=== PATIENT | male | born 1990 | race Caucasian/White ===

== ENCOUNTER 2019-04-10 14:33 | Outpatient (CLI) | payer MEDICAID ==
[2019-04-10 17:06] LABS: BASOPHILS % (AUTO) 0.4 %; EOSINOPHILS # (AUTO) 0.2 10^3/uL (0.0-0.7); EOSINOPHILS % (AUTO) 2.8 %; HGB - HEMOGLOBIN 13.9 g/dL (14.0-18.0); LYMPHOCYTES # (AUTO) 1.8 10^3/uL (1.5-3.5); LYMPHOCYTES % (AUTO) 31.8 %; MEAN CORPUSCULAR HEMOGLOBIN 31.6 pg (27.0-31.0); MEAN CORPUSCULAR HGB CONC 33.4 g/dL (32.0-36.0); MEAN CORPUSCULAR VOLUME 94.5 fL (80.0-94.0); MEAN PLATELET VOLUME 10.6 fL (7.4-11.4); MONOCYTES # (AUTO) 0.8 10^3/uL (0.0-1.0); MONOCYTES % (AUTO) 14.6 %; NEUTROPHILS # (AUTO) 2.9 10^3/uL (1.5-6.6); NEUTROPHILS % (AUTO) 50.2 %; PLT - PLATELET COUNT 285 10^3/uL (130-450); RED CELL DISTRIBUTION WIDTH 13.2 % (12.0-15.0); WHITE BLOOD COUNT 5.7 x10^3/uL (4.8-10.8)
== END 2019-04-10 14:34 | disposition home or self-care (01) ==
LOC: LAB.F 14:33
PROVIDERS: ATTEND Registered Nurse
DX: F41.8 Other specified anxiety disorders (principal); J30.9 Allergic rhinitis, unspecified
CPT/HCPCS: 36415; 84443; 85025

== ENCOUNTER 2020-08-18 13:24 | Outpatient (CLI) | payer MEDICAID ==
--- NOTE | 2020-08-18 13:46 | XRAY Report ---
PROCEDURE: Shoulder 2 View LT INDICATIONS: Left shoulder pain TECHNIQUE: 2 views of the shoulder were acquired. COMPARISON: None. FINDINGS: Bones: No fractures or dislocations. No suspicious bony lesions. Visualized ribs appear intact. Soft tissues: No suspicious soft tissue calcifications. IMPRESSION: Normal left shoulder radiographs. Reviewed by: Jens Ramirez MD on 08/18/2020 1:45 PM RUST Approved by: Jens Ramirez MD on 08/18/2020 1:45 PM RUST Station ID: [id number]
== END 2020-08-18 23:59 | disposition home or self-care (01) ==
LOC: DI.WCP 13:24
PROVIDERS: ATTEND Orthopaedic Surgery
DX: M25.512 Pain in left shoulder (principal)

== ENCOUNTER 2023-01-26 00:53 | Emergency (ER) | payer MEDICAID ==
[2023-01-26] MEDS ORDERED: ONDANSETRON 4 MG/2 ML VIAL IVP STA (00:56)
[2023-01-26] MEDS ORDERED: SODIUM CHLORIDE 0.9% 1,000 ML IV STA (00:56)
[2023-01-26] MEDS ORDERED: KETOROLAC 30 MG/ML VIAL IVP STA (00:57)
[2023-01-26] MEDS ORDERED: MORPHINE 2 MG/ML CARPUJECT IVP STA (01:03)
--- NOTE | 2023-01-26 01:05 | ED Physician Documentation ---
PD HPI ABD PAIN - Stated complaint Stated Complaint: ABD PAIN, VOMITING - Chief complaint Chief Complaint: Abd Pain - History obtained from History obtained from: Patient - Additional information Additional information: Patient is a 32-year-old presenting for evaluation of right-sided abdominal pain that started suddenly at 11 PM with associated nausea and vomiting. Patient states that the pain comes in waves. He has not had no prior episodes similar to this but did have a little bit of pain yesterday in the back. He denies hematuria, fevers, dysuria.He denies prior abdominal surgeries. Denies diarrhea. Review of Systems Constitutional: denies: Fever Cardiac: denies: Chest pain / pressure Respiratory: denies: Dyspnea GI: reports: Abdominal Pain, Nausea, Vomiting : denies: Dysuria PD PAST MEDICAL HISTORY - Present Medications Home Medications: Ambulatory Orders Medication Instructions Recorded Confirmed Ondansetron Odt [Zofran] 4 mg TL Q6H PRN #10 tablet 01/26/23 Oxycodone HCl/Acetaminophen 1 each PO Q6H PRN #14 tablet 01/26/23 [Percocet 5-325 mg Tablet] Tamsulosin [Flomax] 0.4 mg PO DAILY #14 cap 01/26/23 - Allergies Allergies/Adverse Reactions: Allergies Allergy/AdvReac Type Severity Reaction Status Date / Time No Known Drug Allergies Allergy Verified 01/26/23 00:57 PD ED PE NORMAL - General General: Alert and oriented X 3, No acute distress, Well developed/nourished - HEENT HEENT: Atraumatic - Neck Neck: Supple, no meningeal sign - Cardiac Cardiac: RRR, No murmur - Respiratory Respiratory: No respiratory distress, Clear bilaterally - Abdomen Abdomen: Normal bowel sounds, Soft, Non tender, Non distended - Derm Derm: Warm and dry - Neuro Neuro: Normal speech Results - Vitals Vitals: Vital Signs - 24 hr 01/26/23 01/26/23 01/26/23 00:57 01:00 03:00 Temperature 36.5 C 36.5 C Heart Rate 88 88 72 Respiratory 18 18 16 Rate Blood Pressure 116/85 H 116/85 H 107/72 O2 Saturation 98 98 97 01/26/23 03:54 Temperature Heart Rate 67 Respiratory 16 Rate Blood Pressure 129/65 O2 Saturation 97 Oxygen O2 Source Room air - Labs Labs: Laboratory Tests 01/26/23 01/26/2301/26/23 01:47 01:47 02:48 WBC 15.9 H RBC 4.55 L Hgb 14.8 Hct 41.9 L MCV 92.1 MCH 32.5 H MCHC 35.3 RDW 12.5 Plt Count 311 MPV 9.6 Neut # (Auto) 13.2 H Lymph # (Auto) 1.5 [place] # (Auto) 1.0 Eos # (Auto) 0.1 Baso # (Auto) 0.0 Absolute Nucleated RBC 0.00 Nucleated RBC % 0.0 Sodium 142 Potassium 3.7 Chloride 109 Carbon Dioxide 20 L Anion Gap 13.0 BUN 24 H Creatinine 1.3 H Estimated GFR (MDRD) 64 L Glucose 160 H Calcium 9.3 Total Bilirubin 0.5 AST 20 ALT 21 Alkaline Phosphatase 56 Total Protein 7.1 Albumin 4.3 Globulin 2.8 Albumin/Globulin Ratio 1.5 Lipase 24 Urine Color YELLOW Urine Clarity CLEAR Urine pH 6.0 Ur Specific [place] >=1.030 H Urine Protein TRACE Urine Glucose (UA) NEGATIVE Urine Ketones TRACE Urine Occult Blood LARGE H Urine Nitrite NEGATIVE Urine Bilirubin NEGATIVE Urine Urobilinogen 0.2 (NORMAL) Ur Leukocyte Esterase NEGATIVE Urine RBC TNTC H Urine WBC 0-3 Ur Squamous Epith Cells RARE Squamous Urine Bacteria Rare Urine Mucus Moderate Strands Ur Microscopic Review INDICATED Urine Culture Comments NOT INDICATED PD Medical Decision Making - ED course Complexity details: reviewed results, re-evaluated patient, d/w patient ED course: Patient is a 32-year-old presenting for evaluation of right-sided abdominal pain that started suddenly tonight with nausea and vomiting.His vital signs appear stable. His abdominal pain is not reproducible on exam.Due to description of pain I am concerned for a renal stone. A CBC, chemistry, urine analysis were obtained and reviewed. His CBC is significant for mild leukocytosis of 15,000. Creatinine is 1.3. I do not have access to any prior labs for comparison.He is not febrile. CT skin which I also reviewed does demonstrate a 3 mm stone in the right ureter.Patient's urine does not suggest infection. He does not have a fever and does not appear septic. His symptoms including pain and nausea are well controlled here and he is tolerating p.o. Discussed treatment plan for stones to include pain and nausea medications as well as Flomax and need for close follow-up with her PCP. Patient is also advised on strict return precautions for any worsening symptoms. Departure - Departure Disposition: 01 Home, Self Care Clinical Impression: Right ureteral stone Condition: Stable Instructions: ED Stone Renal W Colic Prescriptions: Tamsulosin [Flomax] 0.4 mg PO DAILY #14 cap Oxycodone HCl/Acetaminophen [Percocet 5-325 mg Tablet] 1 each PO Q6H PRN #14 tablet PRN Reason: pain Ondansetron Odt [Zofran] 4 mg TL Q6H PRN #10 tablet PRN Reason: Nausea / Vomiting Comments: You have a 3 mm stone in the right ureter which is the tube that connects the kidney to the bladder.I am sending prescriptions to [facility] in [place] to help you pass the stone which include a narcotic pain medication, antinausea medication and Flomax. Please make sure you are drinking plenty of fluids as this will help you pass the stone easier. If you develop any worsening symptoms such as fever, continued vomiting, worsening pain then please return to the emergency department. I would recommend close follow-up with your primary care doctor in the next week as you may need a referral to a urologist. I am prescribing a short course of narcotic pain medication for you. These are potentially dangerous and addictive medications that should be used carefully. These medications may constipate you. Take an [id number]-[id number] stool softener (docusate) twice daily with plenty of water while taking these medications. If you go 24 hours without a bowel movement, take [id number] miralax, per package instructions. Do not drink or drive while taking these medications. If you received narcotic or sedating medications while in the emergency department, do not drive for 24 hours. Store this medication in a safe, secure place and out of reach of children. It is a violation of federal law to give or sell this medication to another person or to use in a manner other than prescribed. The ED will not refill narcotic prescriptions, including prescriptions lost or stolen. To dispose of unwanted medications: 1. [facility] at [address] [facility] in [place] has a medication drop box. They accept prescription medications (in pill form) Saturday through Saturday 9:00 a.m. to 5:00 p.m. 2. [facility] accepts prescription medications (in pill form only) for disposal year round. Call for more information. 3. Contact the [facility] for the next [facility] sponsored prescription drug collection event. , [phone], or [phone]; Note that many narcotic pain relievers also contain Tylenol/acetaminophen. Please ensure that your total dose of acetaminophen from all sources does not exceed 3 g (3000 mg) per day. Discharge Date/Time: 01/26/23 03:55
--- NOTE | 2023-01-26 01:50 | CT Report ---
PROCEDURE: ABDOMEN/PELVIS WO INDICATIONS: R sided pain TECHNIQUE: Noncontrast 5 mm thick sections acquired from the diaphragms to the symphysis. 5 mm coronal and sagi ttal reformats were then performed. For radiation dose reduction, the following was used: automated exposure control, adjustment of mA and/or kV according to patient size. COMPARISON: None. FINDINGS: Image quality: Excellent. Lung bases and heart: No pleural effusion. Small hiatal hernia. Liver: Unremarkable. Gallbladder and biliary tree: Unremarkable. Spleen: No splenomegaly. Pancreas: Unremarkable. Adrenals: Unremarkable. Kidneys and ureters: Obstructing calculus in the proximal right ureter measuring 0.3 cm, (3/76). Mild right hydronephrosis. No additional kidney stones. Bowel and peritoneum: No bowel distension. No pathologic free fluid. Normal appendix. Lymph nodes: No central or retroperitoneal adenopathy. Vessels: Unremarkable. PELVIS Reproductive organs: Unremarkable. Bladder: Unremarkable. Lymph nodes: Unremarkable. Bones: No aggressive osseous abnormality. Other: None. IMPRESSION: 1. Mild right hydronephrosis. Obstructing calculus in the proximal right ureter measuring 0.3 cm. 2. No additional kidney stones. Reviewed by: Panchito Christensen MD on 01/26/2023 1:49 AM PDT Approved by: Panchito Christensen MD on 01/26/2023 1:49 AM PDT Station ID: [id number]
[2023-01-26 01:54] LABS: BASOPHILS % (AUTO) 0.3 %; EOSINOPHILS # (AUTO) 0.1 10^3/uL (0.0-0.7); EOSINOPHILS % (AUTO) 0.5 %; HCT - HEMATOCRIT 41.9 % (42.0-52.0); HGB - HEMOGLOBIN 14.8 g/dL (14.0-18.0); LYMPHOCYTES # (AUTO) 1.5 10^3/uL (1.5-3.5); LYMPHOCYTES % (AUTO) 9.3 %; MEAN CORPUSCULAR HEMOGLOBIN 32.5 pg (27.0-31.0); MEAN CORPUSCULAR HGB CONC 35.3 g/dL (32.0-36.0); MEAN CORPUSCULAR VOLUME 92.1 fL (80.0-94.0); MEAN PLATELET VOLUME 9.6 fL (7.4-11.4); MONOCYTES % (AUTO) 6.3 %; NEUTROPHILS # (AUTO) 13.2 10^3/uL (1.5-6.6); NEUTROPHILS % (AUTO) 83.2 %; PLT - PLATELET COUNT 311 10^3/uL (130-450); RED BLOOD COUNT 4.55 10^6/uL (4.70-6.10); RED CELL DISTRIBUTION WIDTH 12.5 % (12.0-15.0); WHITE BLOOD COUNT 15.9 x10^3/uL (4.8-10.8)
[2023-01-26 02:04] LABS: ALBUMIN 4.3 g/dL (3.2-5.5); ALBUMIN/GLOBULIN RATIO 1.5 (1.0-2.2); BILIRUBIN,TOTAL 0.5 mg/dL (0.2-1.0); CALCIUM 9.3 mg/dL (8.5-10.3); CREATININE 1.3 mg/dL (0.6-1.2); POTASSIUM 3.7 mmol/L (3.5-5.0); TOTAL PROTEIN 7.1 g/dL (6.7-8.2)
[2023-01-26] MEDS ORDERED: METOCLOPRAMIDE 10 MG/2 ML VIAL IVP STA (02:48)
[2023-01-26 02:55] LABS: BILIRUBIN,URINE NEGATIVE (NEGATIVE); GLUCOSE, URINE (UA) NEGATIVE (NEGATIVE); KETONES,URINE (UA) TRACE mg/dL (NEGATIVE); LEUKOCYTE ESTERASE, URINE NEGATIVE (NEGATIVE); NITRITE,URINE NEGATIVE (NEGATIVE); OCCULT BLOOD,URINE LARGE (NEGATIVE); PROTEIN,URINE TRACE mg/dL (NEGATIVE); UROBILINOGEN,URINE 0.2 (NORMAL) E.U./dL (NORMAL)
[2023-01-26 02:58] LABS: CLARITY,URINE CLEAR (CLEAR)
[2023-01-26 03:01] LABS: BACTERIA,URINE Rare /HPF (None Seen); MUCUS,URINE Moderate Strands; RBC,URINE TNTC /HPF (0-5); SQUAMOUS EPITHELIAL CELL,UR RARE Squamous (<= Few); WBC,URINE 0-3 /HPF (0-3)
[2023-01-26] MEDS ORDERED: oxyCODONE/ACET 5/325 Prepack 4 PO STA (03:18)
[2023-01-26] MEDS ORDERED: ONDANSETRON ODT 4 MG Prepack 2 TL PRN (03:18)
[2023-01-26 03:55] VITALS: BP 129/65
== END 2023-01-26 03:55 | disposition home or self-care (01) ==
LOC: EDUNIT# → ED 00:53
DX: N13.2 Hydronephrosis with renal and ureteral calculous obstruction (principal)
CPT/HCPCS: 36415; 74176; 80053; 81001; 83690; 85025; 96374; 96375; 99284; 99285; J2765; 81003; 87086

== ENCOUNTER 2023-01-26 14:16 | Outpatient (CLI) | payer MEDICAID | END 2023-01-26 14:20 | disposition critical access hospital (66) | LOC: EMS 14:16 | DX: R10.31 Right lower quadrant pain (principal); R61 Generalized hyperhidrosis; R11.10 Vomiting, unspecified | CPT/HCPCS: A0425; A0429; A0999 ==

== ENCOUNTER 2023-01-27 08:17 | Outpatient (CLI) | payer MEDICAID | END 2023-01-27 08:18 | disposition critical access hospital (66) | LOC: EMS 08:17 | DX: R10.30 Lower abdominal pain, unspecified (principal); R11.10 Vomiting, unspecified | CPT/HCPCS: A0425; A0427 ==

== ENCOUNTER 2023-01-27 08:19 | Emergency (ER) | payer MEDICAID ==
[2023-01-27] MEDS ORDERED: PROMETHAZINE INJ 25 MG in SODIUM CHLORIDE 0.9% 50 ML IV STA (09:06)
[2023-01-27] MEDS ORDERED: SODIUM CHLORIDE 0.9% 1,000 ML IV STA (09:06)
--- NOTE | 2023-01-27 09:08 | ED Physician Documentation ---
PD HPI ABD PAIN - Stated complaint Stated Complaint: ABD PX - Chief complaint Chief Complaint: Abd Pain - History obtained from History obtained from: Patient - Additional information Additional information: The patient returns to the emergency department with chief complaint of unable to keep any of his pain meds down. He was diagnosed with a kidney stone on the right a couple of days ago and has been on oxycodone and oral dissolving Zofran at home. He states that he did dissolve the Zofran in his mouth, but that this did not seem to help at all. He tried taking oxycodone 3 times and vomited it up every time. He the patient denies any fevers or chills. No dysuria. He is concerned that he has not been able to drink much water and so he is not making a lot of urine to push the stone through. He does note that the location of the pain has gone from being in his right posterior superior flank to being down in his right lower quadrant/pelvic area. Review of his records reveals that the CT scan showed a 3 mm stone in the proximal ureter when the patient was seen a couple of days ago. No other complaints at this time. The patient states that he received fentanyl in route with the medics report to be 50 mcg and that now he has no nausea or pain. PD PAST MEDICAL HISTORY - Past Medical History Cardiovascular: None Respiratory: None Neuro: None Endocrine/Autoimmune: None GI: None : None HEENT: None Psych: None Musculoskeletal: None Derm: None - Past Surgical History Past Surgical History: No - Present Medications Home Medications: Ambulatory Orders Medication Instructions Recorded Confirmed Ondansetron Odt [Zofran] 4 mg TL Q6H PRN #10 tablet 01/26/23 Oxycodone HCl/Acetaminophen 1 each PO Q6H PRN #14 tablet 01/26/23 [Percocet 5-325 mg Tablet] Tamsulosin [Flomax] 0.4 mg PO DAILY #14 cap 01/26/23 Promethazine [Phenergan] 25 mg PO Q6H PRN #20 tab 01/27/23 - Allergies Allergies/Adverse Reactions: Allergies Allergy/AdvReac Type Severity Reaction Status Date / Time No Known Drug Allergies Allergy Verified 01/26/23 00:57 - Social History Does the pt smoke?: No Smoking Status: Never smoker Does the pt drink ETOH?: No Does the pt have substance abuse?: No - Immunizations Immunizations are current?: Yes - POLST Patient has POLST: No PD ED PE NORMAL - Vitals Vital signs reviewed: Yes - General General: Alert and oriented X 3, No acute distress, Well developed/nourished - HEENT HEENT: Atraumatic, PERRL, EOMI, Moist mucous membranes - Neck Neck: Supple, no meningeal sign - Cardiac Cardiac: RRR, No murmur - Respiratory Respiratory: No respiratory distress, Clear bilaterally - Abdomen Abdomen: Soft, Non tender, Non distended - Derm Derm: Normal color, Warm and dry, No rash - Extremities Extremities: No deformity, No edema - Neuro Neuro: Alert and oriented X 3 - Psych Psych: Normal mood, Normal affect Results - Vitals Vitals: Vital Signs - 24 hr 01/27/23 01/27/23 08:29 11:37 Heart Rate 70 83 Respiratory 18 16 Rate Blood Pressure 134/90 H 117/72 O2 Saturation 98 100 Oxygen O2 Source Room air PD Medical Decision Making - ED course Complexity details: reviewed old records, considered differential, d/w patient ED course: The patient was treated symptomatically with IV fluids and Phenergan, and was able to tolerate p.o. in the ED. I had all ordered oxycodone orally for the patient to make sure he could hold his pain medication down and to bridge him, analgesia varghese, until he could get home. However, the nurse brought it to my attention later that the patient had refused to take the oxycodone, stating he did not have any pain, despite our conversation about needing to be sure he was covered and he could tolerate his home meds. The patient otherwise was stable for discharge home. We have discussed home management of the symptoms and the usual indications for return. Departure - Departure Disposition: 01 Home, Self Care Clinical Impression: Pain due to calculus of kidney Vomiting Qualifiers: Vomiting type: bilious vomiting Nausea presence: with nausea Qualified Code(s): R11.14 - Bilious vomiting Condition: Stable Instructions: ED Nausea Vomiting, ED Stone Renal W Colic Comments: You have done very well here in the emergency department and has tolerated oral medication and water without difficulty. It may be best for the next 24 hours to just take the nausea medicine on schedule, meaning 1-2 dissolvable tablets every 6 hours. This may help swings in nausea and prevent a situation which you cannot hold your pain medication down or drink water effectively. It sounds as though your kidney stone is progressing as expected and hopefully will pass soon if it has not already passed. Please follow-up with your primary doctor as needed. Discharge Date/Time: 01/27/23 11:39
[2023-01-27] MEDS ORDERED: PROMETHAZINE 25 MG/1 ML VIAL ONE (09:16)
[2023-01-27] MEDS ORDERED: oxyCODONE 5 MG TABLET PO STA (09:46)
[2023-01-27 11:37] VITALS: BP 117/72
== END 2023-01-27 11:39 | disposition home or self-care (01) ==
LOC: EDUNIT# → ED 08:19
DX: N20.0 Calculus of kidney (principal); R11.14 Bilious vomiting
CPT/HCPCS: 96365; 96372; 99284; J1170; J7040

== ENCOUNTER 2023-01-27 11:54 | Emergency (ER) | payer MEDICAID ==
[2023-01-27 12:27] VITALS: BP 134/100
[2023-01-27] MEDS ORDERED: HYDROmorphone 1 MG/ML CARPUJECT IM STA (13:17)
[2023-01-27] MEDS ORDERED: DROPERIDOL 5 MG/2 ML VIAL IM STA (13:17)
[2023-01-27] MEDS ORDERED: KETOROLAC 60 MG/2 ML VIAL IM STA (13:17)
--- NOTE | 2023-01-27 13:22 | ED Physician Documentation ---
History of Present Illness - Stated complaint Stated Complaint: SEVERE PX RT SIDE/KIDNEY STONE - Chief complaint Chief Complaint: Abd Pain - History obtained from History obtained from: Patient, Family - Additonal information Additional information: The patient returns to the emergency department with chief complaint of recurrence of pain in his right lower quadrant/pelvis. The patient was just seen here for pain related to kidney stone he was diagnosed with a couple of days ago, after being unable to keep his medication down at home. The patient had been given fentanyl in route and was completely pain and nausea free upon my evaluation of him earlier. He was additionally treated with IV fluids and Phenergan. An oral dose of oxycodone, which the patient had been taken at home, was ordered, both for Analgesia and as a p.o. challenge. However, nursing staff reported to me that the patient declined to take the medication, stating that he was not hurting and did not want to take it. The patient now completely denies this and states that he never was even offered medication. He states that even though he was discharged 2 hours ago, he had "just left the emergency department" when his pain recurred in a severe fashion. He states he also apparently at some point ate a full lunch after leaving here and states that he "just lost his lunch". He complains of pain and nausea now. PD PAST MEDICAL HISTORY - Past Medical History Cardiovascular: None Respiratory: None Neuro: None Endocrine/Autoimmune: None GI: None : None HEENT: None Psych: None Musculoskeletal: None Derm: None - Past Surgical History Past Surgical History: No - Present Medications Home Medications: Ambulatory Orders Medication Instructions Recorded Confirmed Ondansetron Odt [Zofran] 4 mg TL Q6H PRN #10 tablet 01/26/23 Oxycodone HCl/Acetaminophen 1 each PO Q6H PRN #14 tablet 01/26/23 [Percocet 5-325 mg Tablet] Tamsulosin [Flomax] 0.4 mg PO DAILY #14 cap 01/26/23 Promethazine [Phenergan] 25 mg PO Q6H PRN #20 tab 01/27/23 - Allergies Allergies/Adverse Reactions: Allergies Allergy/AdvReac Type Severity Reaction Status Date / Time No Known Drug Allergies Allergy Verified 01/26/23 00:57 - Social History Does the pt smoke?: No Smoking Status: Never smoker Does the pt drink ETOH?: No Does the pt have substance abuse?: No - Immunizations Immunizations are current?: Yes - POLST Patient has POLST: No PD ED PE NORMAL - Vitals Vital signs reviewed: Yes - General General: Alert and oriented X 3, No acute distress, Well developed/nourished, Other (The patient appears uncomfortable and somewhat irritable but otherwise in no apparent distress) - HEENT HEENT: Atraumatic, PERRL, EOMI, Moist mucous membranes - Neck Neck: Supple, no meningeal sign - Respiratory Respiratory: No respiratory distress - Derm Derm: Normal color, Warm and dry, No rash - Extremities Extremities: No deformity - Neuro Neuro: Other (Alert, grossly intact) - Psych Psych: Normal mood, Normal affect Results - Vitals Vitals: Vital Signs - 24 hr 01/27/23 12:23 Temperature 36.3 C L Heart Rate 81 Respiratory 18 Rate Blood Pressure 134/100 H O2 Saturation 100 Oxygen O2 Source Room air PD Medical Decision Making - ED course Complexity details: considered differential, d/w patient, d/w family ED course: I discussed with the patient that part of the point of ordering the oral pain medication for him was to be sure that he could tolerate p.o. and part of the point also was to prevent recurrence of pain and to bridge his pain control between the fentanyl he received in route and the trip home and his restarting his home meds. The patient but he mentally denied having declined the medication, though the nurse Had already informing independently of the situation. I did give the patient doses of Phenergan and Dilaudid and Toradol IM. Prior to this, I discussed with the patient that it is very important that he preempt his development of symptoms rather than waiting until they develop to try to get on top of the pain and nausea. His mother, who is accompanied him, has asked if he may double his dose of Zofran to 8 mg every 6 hours and I have advised her that this is fine. We have also discussed that the patient may take up to 2 tablets of his Percocet every 4 hours as needed, whereas he has been taking only 1 tablet every 6 hours. However, given that he has not been able to hold these down, it is unclear if this dose would be effective if he could keep it down. They have also requested a suppository prescription For an additional antiemetic and I have prescribed Phenergan. We have discussed regimen for at home and the importance of drinking water when the patient's nausea is under control. Departure - Departure Disposition: 01 Home, Self Care Clinical Impression: Kidney stone on right side Condition: Stable Instructions: ED Stone Renal W Colic Follow-Up: Gypsy Owens MD [Physician No Access] - Sahara Avendaño MD [Physician No Access] - Prescriptions: Promethazine [Phenergan] 25 mg PO Q6H PRN #20 tab PRN Reason: Nausea / Vomiting Comments: You have been treated with sedating medications in the emergency department, and should not drive or operate heavy equipment for the next 8 hours. A prescription for nausea suppositories has been electronically transmitted to the [facility] in [place], your pharmacy of choice on record. It is important that you stay on top of that pain and nausea and preempt development of symptoms, rather than waiting until symptoms develop to take the medication. As such, you should take up to 2 of your oxycodone every 4 hours and up to 8 mg of the ondansetron every 6 hours, as needed for pain and for nausea. You may additionally take the Phenergan suppositories every 6 hours, along with the other medications, as the Phenergan is unrelated to either one. Please drink plenty of fluids, as this will help to push the stone through the junction of the ureter and bladder, which is generally the toughest spot for the stone to get through. Once the stone passes into the bladder, it makes a very quick exit with urination, due to a much higher degree of pressure with urination than with passive flow from the kidneys. If you are still having symptoms after a week, you will need to follow-up with urology. Some options have been given above for this.
== END 2023-01-27 13:37 | disposition home or self-care (01) ==
LOC: ED 11:54
DX: N20.0 Calculus of kidney (principal); R11.2 Nausea with vomiting, unspecified
CPT/HCPCS: 96372

== ENCOUNTER 2023-01-30 08:00 | Outpatient (CLI) | payer MEDICAID ==
--- NOTE | 2023-01-31 13:10 | XRAY Report ---
PROCEDURE: Knee 3 View BILAT INDICATIONS: BILATERAL KNEE PAIN TECHNIQUE: 3 views of the bilateral knee(s) were acquired. COMPARISON: None. FINDINGS: Bones: No fractures or dislocations. No suspicious bony lesions. No radiographic findings of oste oarthritis. Soft tissues: No knee joint effusion. No suspicious soft tissue calcifications or masses. IMPRESSION: No evidence acute bony abnormality of the bilateral knees. If clinical suspicion and/or symptoms persist, further assessment with repeat plain films or advanced imaging (e.g., CT, MRI, or bone scan) may be helpful for further assessment. Reviewed by: Holger Leiva MD on 01/31/2023 1:08 PM PDT Approved by: Holger Leiva MD on 01/31/2023 1:08 PM PDT Station ID: [id number]
== END 2023-01-30 23:59 | disposition home or self-care (01) ==
LOC: DI.S 08:00
PROVIDERS: ATTEND Nurse Practitioner
DX: M25.569 Pain in unspecified knee (principal)

== ENCOUNTER 2023-04-25 07:51 | Outpatient (CLI) | payer MEDICAID ==
--- NOTE | 2023-04-25 09:07 | Ultrasound Report ---
PROCEDURE: Retroperitoneal INDICATIONS: NEPHROLITHIASIS TECHNIQUE: Real-time scanning was performed of the retroperitoneal organs, with image documentation. COMPARISON: CT abdomen pelvis 01/24/2023. FINDINGS: Kidneys: Kidneys are normal in size. Right kidney measures 9.9 cm long; left kidney measures 10.9 c m long. Right renal cortical thickness is 1.2 cm; left renal cortical thickness is 1.0 cm. No solid masses, hydronephrosis, or nephrolithiasis. Bladder: Pre-void bladder volume is 94 mL. Post-void residual is 2 mL. Pre-void images demonstrate no intraluminal masses or stones. On pre-void images, both ureteral jets are noted with color Doppl er interrogation. (Of note, ureteral jets may not be detectable in up to 25% of cases due to insuffi cient differences in specific gravity between ureteral and bladder urine). Miscellaneous: No free abdominal fluid. IMPRESSION: No hydronephrosis. No renal stone visualized sonographically. Reviewed by: Jaime Forrest MD on 04/25/2023 9:06 AM PDT Approved by: Jaime Forrest MD on 04/25/2023 9:06 AM PDT Station ID: [id number]
== END 2023-04-25 07:52 | disposition home or self-care (01) ==
LOC: DI 07:51
PROVIDERS: ATTEND Urology
DX: N13.2 Hydronephrosis with renal and ureteral calculous obstruction (principal)

== ENCOUNTER 2023-05-18 16:36 | Outpatient (CLI) | payer MEDICAID | END 2023-05-18 16:37 | disposition left against medical advice (07) | LOC: EMS 16:36 | DX: S00.81XA Abrasion of other part of head, initial encounter (principal); V48.5XXA Car driver injured in noncollision transport accident in traffic accident, initial encounter; Y92.413 State road as the place of occurrence of the external cause ==

== ENCOUNTER 2023-06-25 17:05 | Outpatient (CLI) | payer MEDICAID ==
--- NOTE | 2023-06-26 21:01 | XRAY Report ---
PROCEDURE: Eye Foreign Body INDICATIONS: POSTCONCUSSION SYNDROME TECHNIQUE: A single view of the orbits was acquired. COMPARISON: None FINDINGS: Soft tissues: No metallic foreign bodies are visualized around the orbits. Bones: Bony structures appear unremarkable. Visualized sinuses appear clear. IMPRESSION: No radiopaque foreign body. Reviewed by: Jennifer Gatica MD on 06/26/2023 9:00 PM PDT Approved by: Jennifer Gatica MD on 06/26/2023 9:00 PM PDT Station ID: [id number]
== END 2023-06-25 17:06 | disposition home or self-care (01) ==
LOC: DI.S 17:05
PROVIDERS: ATTEND Physician Assistant Medical
DX: H44.71 Retained (nonmagnetic) (old) foreign body in anterior chamber (principal)

== ENCOUNTER 2023-06-29 07:36 | Outpatient (CLI) | payer MEDICAID ==
--- NOTE | 2023-07-01 08:00 | MRI Report ---
PROCEDURE: BRAIN WO INDICATIONS: POSTCONCOSSION SYNDROME TECHNIQUE: Noncontrast axial T1 spin echo, axial T2 fast spin echo, sagittal and axial FLAIR, coronal T2 fast sp in echo, axial gradient echo, axial diffusion and ADC through the brain. COMPARISON: None. FINDINGS: Image quality: Excellent. CSF Spaces: Basal cisterns are patent. No extra-axial fluid collections. Ventricles are normal in size and shape. Brain: No intracranial masses or hemorrhage. Turcios/white matter interface is normal. Brainstem appe ars normal. Diffusion-weighted images demonstrate no acute ischemic insult. No chronic ischemic ins ults. Normal intravascular flow voids are present. Skull and face: Calvarium has normal marrow signal. Orbits appear normal. Sinuses: Sinuses and mastoids are clear. IMPRESSION: Unremarkable brain MRI. No acute intracranial process. Reviewed by: Holger Leiva MD on 07/01/2023 7:59 AM PDT Approved by: Holger Leiva MD on 07/01/2023 7:59 AM PDT Station ID: [id number]
== END 2023-06-29 07:37 | disposition home or self-care (01) ==
LOC: DI 07:36
PROVIDERS: ATTEND Physician Assistant Medical
DX: F07.81 Postconcussional syndrome (principal)